=== PATIENT | female | born 1955 | race Caucasian/White ===

== ENCOUNTER 2017-12-04 13:51 | Emergency (ER) | payer OTHER ==
[~2017-12-04] VITALS: Ht 160 cm; Wt 81.7 kg
[~2017-12-04 13:51] MED LIST: CIPROFLOXACIN500 M1 PO; GLIPIZIDE ER2.5 MG; GLUCOPHAGE1000 MG; PERCOCET 5-3251 EACH PO; SIMVASTATIN20 MG; VICTOZA0.6 MG/0.1 SUBQ
[2017-12-04] MEDS ORDERED: INVOKANA300 MG PO (14:12)
[2017-12-04] MEDS ORDERED: NORTRIPTYLINE H50 MG PO (14:14)
[2017-12-04] MEDS ORDERED: XANAX1 MG PO ×2 (14:14→14:15)
[2017-12-04] MEDS ORDERED: LISINOPRIL10 MG PO (14:15)
[2017-12-04] MEDS ORDERED: EXCEDRIN CAPLE1 EACH PO (14:15)
[2017-12-04] MEDS ORDERED: MOBIC15 MG PO (14:15)
[2017-12-04] MEDS ORDERED: PAXIL10 MG PO (14:16)
[2017-12-04] MEDS ORDERED: NORCO 5-325 TA1 EACH PO (15:47)
[2017-12-04] MEDS ORDERED: NAPROSYN500 MG PO (15:47)
[2017-12-04 15:57] VITALS: BP 118/63
== END 2017-12-04 15:58 | disposition home or self-care (01) ==
LOC: M.ERS 13:51
DX: S20.211A Contusion of right front wall of thorax, initial encounter (principal); E11.9 Type 2 diabetes mellitus without complications; I10 Essential (primary) hypertension; E78.00 Pure hypercholesterolemia, unspecified; F41.0 Panic disorder [episodic paroxysmal anxiety]; M19.90 Unspecified osteoarthritis, unspecified site; G43.909 Migraine, unspecified, not intractable, without status migrainosus; W22.8XXA Striking against or struck by other objects, initial encounter; Y93.89 Activity, other specified; Y92.89 Other specified places as the place of occurrence of the external cause; Y99.8 Other external cause status

== ENCOUNTER → 2018-01-27 | Outpatient (CLI) | payer OTHER ==
[~2018-01-27] MED LIST changes: +EXCEDRIN CAPLE1 EACH PO; +INVOKANA300 MG PO; +LISINOPRIL10 MG PO; +MOBIC15 MG PO; +NAPROSYN500 MG PO; +NORCO 5-325 TA1 EACH PO; +NORTRIPTYLINE H50 MG PO; +PAXIL10 MG PO; +XANAX1 MG PO
--- NOTE | 2018-01-27 18:36 | 2DMMODE ---
[place] [address] 2 D/M-MODE ECHOCARDIOGRAM Name: CORAL MCKOY Room: [facility]#: [id number] Admission: 01/27/18 Attend Phys: Russell Bernard Discharge: Date of : 55 Date of Service: 01/27/18 1835 Report #: [id number] THIS REPORT FOR: //name// APPROVED REPORT Study performed: 01/27/2018 09:35:25 EXAM: Comprehensive 2D, Doppler, and color-flow Echocardiogram Patient Location: Out-Patient Status: routine BSA: 1.84 HR: 99 bpm BP: 122/82 mmHg Other Information Study Quality: Good Indications Palpitations 2D Dimensions LVEF(%): 58.03 (>50%) IVSd: 12.81 (7-11mm) LVOT Diam: 19.53 (18-24mm) LVDd: 37.73 mm PWd: 9.19 (7-11mm) Ascending Ao: 30.45 (22-36mm) LVDs: 26.40 (25-40mm) Aortic Root: 21.18 mm Tinsley's LVEF: 58.03 % Volumes Left Atrial Volume (Systole) LA ESV Index: 10.20 mL/m2 Aortic Valve AoV Peak Davon.: 1.10 m/s AO Peak Gr.: 4.84 mmHg LVOT Max P.82 mmHg AO Mean Gr.: 2.56 mmHg LVOT Mean P.45 mmHg LVOT Max V: 0.84 m/s AO V2 VTI: 20.06 cm LVOT Mean V: 0.56 m/s FERCHO (VTI): 2.45 cm2 LVOT V1 VTI: 16.40 cm Mitral Valve E/A Ratio: 0.67 MV Decel. Time: 182.33 [place] [address] 2 D/M-MODE ECHOCARDIOGRAM Name: CORAL MCKOY Room: [facility]#: [id number] Admission: 01/27/18 Attend Phys: Russell Bernard Discharge: Date of : 55 Date of Service: 01/27/18 1835 Report #: [id number] MV E Max Davon.: 0.59 m/s MV PHT: 52.88 ms MVA (PHT): 4.16 cm2 TDI E/Lateral E': 8.43 E/Medial E': 8.43 Medial E' Davon.: 0.07 m/s Lateral E' Davon.: 0.07 m/s Pulmonary Valve PV Peak Davon.: 0.85 m/s PV Peak Gr.: 2.87 mmHg Tricuspid Valve TR Peak Gr.: 19.36 mmHg RVSP: 24.36 mmHg Left Ventricle The left ventricle is normal size. There is normal LV segmental wall motion. There is normal left ventricular wall thickness. Left ventricular systolic function is normal. The left ventricular ejection fraction is within the normal range. LVEF is 60%. Grade I - abnormal relaxation pattern. Right Ventricle The right ventricle is normal size. The right ventricular systolic function is normal. Atria The left atrium size is normal. The right atrium size is normal. Aortic Valve The aortic valve is normal in structure. No aortic regurgitation is present. There is no aortic valvular stenosis. Mitral Valve The mitral valve is normal in structure. Trace mitral regurgitation. No evidence of mitral valve stenosis. Tricuspid Valve The tricuspid valve is normal in structure. Mild tricuspid regurgitation. The RVSP is __24.4 mmHg. Pulmonic Valve The pulmonary valve is normal in structure. There is no pulmonic [place] [address] 2 D/M-MODE ECHOCARDIOGRAM Name: CORAL MCKOY Russell Room: [facility]#: [id number] Admission: 01/27/18 Attend Phys: Russell Bernard Discharge: Date of : 55 Date of Service: 01/27/18 1835 Report #: [id number] Great Vessels The aortic root is normal in size. IVC is normal in size and collapses with >50% inspiration Pericardium There is no pericardial effusion. <Conclusion> The left ventricle is normal size. There is normal left ventricular wall thickness. Left ventricular systolic function is normal. The left ventricular ejection fraction is within the normal range. LVEF is 60%. Grade I - abnormal relaxation pattern. The right ventricle is normal size. The right ventricular systolic function is normal. The left atrium size is normal. The aortic valve is normal in structure. The mitral valve is normal in structure. Trace mitral regurgitation. The tricuspid valve is normal in structure. Mild tricuspid regurgitation. The RVSP is __24.4 mmHg. IVC is normal in size and collapses with >50% inspiration There is no pericardial effusion. There is normal LV segmental wall motion. <ELECTRONICALLY SIGNED> By: Andrew Hebert MD, FACC 01/27/181834 34 34 Andrew Hebert MD, FACC /INF
== END ==
LOC: M.CRD 09:00
DX: I10 Essential (primary) hypertension (principal); I07.1 Rheumatic tricuspid insufficiency

== ENCOUNTER → 2018-07-18 | Outpatient (CLI) | payer OTHER | LOC: M.RAD 14:15 | DX: Z12.31 Encounter for screening mammogram for malignant neoplasm of breast (principal); E11.9 Type 2 diabetes mellitus without complications; I10 Essential (primary) hypertension; E78.00 Pure hypercholesterolemia, unspecified; M19.90 Unspecified osteoarthritis, unspecified site; G43.909 Migraine, unspecified, not intractable, without status migrainosus; Z90.710 Acquired absence of both cervix and uterus ==

== ENCOUNTER 2019-06-20 18:29 | Emergency (ER) | payer OTHER ==
[~2019-06-20] VITALS: Ht 157.5 cm; Wt 81.2 kg
[2019-06-20] MEDS ORDERED: OZEMPIC0.25 MG/0. SQ (18:46)
[2019-06-20] MEDS ORDERED: VITAMIN D2000 UNIT PO (18:46)
[2019-06-20] MEDS ORDERED: STEGLATRO5 MG PO (18:47)
[2019-06-20] MEDS ORDERED: CALCIUM 1,0001 EACH PO (18:47)
[2019-06-20] MEDS ORDERED: IBUPROFEN 800800 M1 PO (19:19)
[2019-06-20] MEDS ORDERED: NORCO 5-325 TA1 EAC1 PO (19:19)
[2019-06-20 19:37] VITALS: BP 104/60
== END 2019-06-20 19:38 | disposition home or self-care (01) ==
LOC: M.ERS 18:29
DX: M25.511 Pain in right shoulder (principal); I10 Essential (primary) hypertension; E11.9 Type 2 diabetes mellitus without complications; E78.00 Pure hypercholesterolemia, unspecified; G47.00 Insomnia, unspecified; M19.90 Unspecified osteoarthritis, unspecified site; F41.0 Panic disorder [episodic paroxysmal anxiety]; G43.909 Migraine, unspecified, not intractable, without status migrainosus; Z90.710 Acquired absence of both cervix and uterus; Z98.890 Other specified postprocedural states

== ENCOUNTER → 2019-07-14 | Outpatient (CLI) | payer OTHER ==
[~2019-07-14] MED LIST changes: +CALCIUM 1,0001 EACH PO; +IBUPROFEN 800800 M1 PO; +NORCO 5-325 TA1 EAC1 PO; +OZEMPIC0.25 MG/0. SQ; +STEGLATRO5 MG PO; +VITAMIN D2000 UNIT PO
== END ==
LOC: M.RAD 11:21
DX: Z12.31 Encounter for screening mammogram for malignant neoplasm of breast (principal)